=== PATIENT | male | born 1940 | race Caucasian/White ===

== ENCOUNTER 2016-06-28 14:38 | Emergency (ER) | payer MEDICARE, BC ==
[~2016-06-28] VITALS: Ht 177.8 cm; Wt 99.4 kg
[~2016-06-28 14:38] MED LIST: DIAZ2 PO; PROP10TA26 PO; PROS5TAB2 PO; [UNRECOGNIZED DRUG - OTHER]
[2016-06-28 14:45] VITALS: BP 134/93; PULSE 63; RESP 17; TEMP 97.9
[2016-06-28] MEDS ORDERED: FINA5TAB2 PO (15:20)
[2016-06-28] MEDS ORDERED: PROP10TA6 PO (15:20)
[2016-06-28] MEDS ORDERED: ROPI0.25 PO (15:20)
[2016-06-28] MEDS ORDERED: PRED5TAB PO (15:21)
[2016-06-28] MEDS ORDERED: DIAZ5TAB PO (15:21)
[2016-06-28] MEDS ORDERED: BACT800T5 PO (15:23)
[2016-06-28] MEDS ORDERED: SODIUM CHLOR 0.9% 1000 ML INJ 1,000 ML IV SCH (15:24)
[2016-06-28] MEDS ORDERED: MORPHINE SULFATE 4 MG/ML INJ IV PUSH ONE (15:30)
[2016-06-28] MEDS ORDERED: ONDANSETRON HCL 4 MG/2 ML VIAL IVP ONE (15:30)
[2016-06-28] MEDS ORDERED: SODIUM CHLORIDE 0.9% FLUSH 10 ML FLUSH IV FLUSH PRN (15:30)
--- NOTE | 2016-06-28 15:32 | PD ---
HPI Chief Complaint: Abdominal Pain Time Seen by Provider: 15:19 Travel History International Travel<30 days: No Contact w/Intl Traveler<30days: No Traveled to known affect area: No History of Present Illness HPI The patient is a 75-year-old male who presents emergency department for abdominal pain. The patient is a 4-5 day history of constipation, now has increasing abdominal pain and distention. The patient also notes decreased flatus production. The patient feels like his abdomen is distended, he now complains of nausea and vomiting that started last night. The patient does have a history of right inguinal hernia repair in the past by Dr. Mendiola but denies any other abdominal surgeries. The patient denies any fever, chills, or sweats. He denies any known history of previous small bowel obstruction or large bowel obstruction. The patient's primary physician is Dr. Abel Giordano. 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) Cerebrovascular Accident: No Endocrine: No Gastrointestinal Disorders: No Glaucoma: No Genitourinary: Yes (BPH) Headaches: No Hypertension: Yes Kidney Stones: No Musculoskeletal: No Neurologic: Yes (TORTICOLIS, HEAD TREMORS, RLS) Psychiatric: Yes (PANIC ATTACKS) Myocardial Infarction: No Radiation Therapy: No Renal Failure: No Seizures: No Sickle Cell Disease: No Influenza Vaccination: No ?: Not Past Surgical History Abdominal Surgery: Yes (INGUINAL HERNIA) AICD: No Cardiac Surgery: No Ear Surgery: No Endocrine Surgery: No Eye Surgery: Yes (LASIK, l retina and l cataract) Genitourinary Surgery: No Gynecologic Surgery: No Neurologic Surgery: No Oral Surgery: Yes (SEPTUM REPAIR) Pacemaker: No Thoracic Surgery: No Tonsillectomy: Yes Other Surgery: Yes (LASIK) Social History Alcohol Use: Yes (STATES BEER 2-3 X'S PER WEEK) Tobacco Use: No Substance Use: No Allergies-Medications (Allergen,Severity, Reaction): Coded Allergies: No Known Allergies (Verified , 06/28/16) Reported Meds & Prescriptions Reported Meds & Active Scripts Active Reported Bactrim DS (Sulfamethoxazole-Trimethoprim) 800-160 Mg Tab 1 Tab PO 3 TIMES WEEKLY Diazepam 5 Mg Tab 2.5 Mg PO HS PRN Prednisone 5 Mg Tab 5 Mg PO DAILY Finasteride 5 Mg Tab 5 Mg PO DAILY Do not crush. Ropinirole 0.25 Mg Tab 0.25 Mg PO HS Propranolol (Propranolol HCl) 10 Mg Tab 10 Mg PO Q12HR Review of Systems Except as stated in HPI: all other systems reviewed are Neg General / Constitutional: No: Fever Cardiovascular: No: Chest Pain or Discomfort Respiratory: Positive: Shortness of Breath (history of pulmonary fibrosis, chronic on prednisone) Gastrointestinal: Positive: Nausea, Vomiting, Abdominal Pain, Constipation, Changes in Bowel Habits, No: Diarrhea Genitourinary: No: Dysuria Musculoskeletal: No: Weakness Neurologic: No: Weakness Physical Exam Narrative GENERAL: Awake, alert, 75-year-old male who appears his stated age and is in no acute respiratory distress. SKIN: Focused skin assessment warm/dry. HEAD: Atraumatic. Normocephalic. EYES: No injection or drainage. ENT: No nasal bleeding or discharge. Mucous membranes pink and moist. NECK: Trachea midline. No JVD. CARDIOVASCULAR: Regular rate and rhythm. No murmur appreciated. RESPIRATORY: No accessory muscle use. Clear to auscultation. Breath sounds equal bilaterally. GASTROINTESTINAL: Abdomen distended, mild periumbilical tenderness. No rebound tenderness. MUSCULOSKELETAL: No obvious deformities. No clubbing. No cyanosis. No edema. NEUROLOGICAL: Awake and alert. No obvious cranial nerve deficits. Motor grossly within normal limits. Normal speech. PSYCHIATRIC: Appropriate mood and affect; insight and judgment normal. Data Data Last Documented VS Vital Signs Date Time Temp Pulse Resp B/P Pulse Ox O2 Delivery O2 Flow Rate FiO2 06/28/16 15:52 98 Room Air 06/28/16 14:45 97.9 63 17 134/93 Orders Complete Blood Count With Diff (06/28/16 15:24) Comprehensive Metabolic Panel (06/28/16 15:24) Lipase (06/28/16 15:24) Lactic Acid (06/28/16 15:24) Urinalysis - C+S If Indicated (06/28/16 15:24) Ct Abd/Pel W/O Iv Contrast (06/28/16 15:24) Iv Access Insert/Monitor (06/28/16 15:24) Ecg Monitoring (06/28/16 15:24) Oximetry (06/28/16 15:24) Morphine Inj (Morphine Inj) (06/28/16 15:30) Ondansetron Inj (Zofran Inj) (06/28/16 15:30) Sodium Chlor 0.9% 1000 Ml Inj (Ns 1000 M (06/28/16 15:24) Sodium Chloride 0.9% Flush (Ns Flush) (06/28/16 15:30) Electrocardiogram (06/28/16 15:24) Labs Laboratory Tests Test 06/28/16 15:48 White Blood Count 13.1 TH/MM3 Red Blood Count 4.64 MIL/MM3 Hemoglobin 14.2 GM/DL Hematocrit 42.1 % Mean Corpuscular Volume 90.8 FL Mean Corpuscular Hemoglobin 30.6 PG Mean Corpuscular Hemoglobin 33.6 % Concent Red Cell Distribution Width 15.0 % Platelet Count 184 TH/MM3 Mean Platelet Volume 8.4 FL Neutrophils (%) (Auto) 69.4 % Lymphocytes (%) (Auto) 13.4 % Monocytes (%) (Auto) 11.5 % Eosinophils (%) (Auto) 3.4 % Basophils (%) (Auto) 2.3 % Neutrophils # (Auto) 9.1 TH/MM3 Lymphocytes # (Auto) 1.8 TH/MM3 Monocytes # (Auto) 1.5 TH/MM3 Eosinophils # (Auto) 0.4 TH/MM3 Basophils # (Auto) 0.3 TH/MM3 CBC Comment DIFF FINAL Differential Comment Urine Collection Type CLEAN CATCH Urine Color YELLOW Urine Turbidity CLEAR Urine pH 7.5 Urine Specific [place] 1.018 Urine Protein 30 mg/dL Urine Glucose (UA) NEG mg/dL Urine Ketones NEG mg/dL Urine Occult Blood SMALL Urine Nitrite NEG Urine Bilirubin NEG Urine Leukocyte Esterase NEG Urine RBC 15-19 /hpf Urine WBC 0-2 /hpf Urine Squamous Epithelial 0-5 /hpf Cells Urine Amorphous Sediment FEW Microscopic Urinalysis Comment CULT NOT INDICATED Urine Collection Time 15:48 Sodium Level 142 MEQ/L Potassium Level 3.4 MEQ/L Chloride Level 105 MEQ/L Carbon Dioxide Level 26.0 MEQ/L Anion Gap 11 MEQ/L Blood Urea Nitrogen 19 MG/DL Creatinine 1.20 MG/DL Estimat Glomerular Filtration 59 ML/MIN Rate Random Glucose 118 MG/DL Calcium Level 8.2 MG/DL Total Bilirubin 0.9 MG/DL Aspartate Amino Transf 31 U/L (AST/SGOT) Alanine Aminotransferase 28 U/L (ALT/SGPT) Alkaline Phosphatase 57 U/L Total Protein 6.6 GM/DL Albumin 3.2 GM/DL Lipase 181 U/L [facility] Medical Decision Making Medical Screen Exam Complete: Yes Emergency Medical Condition: Yes Medical Record Reviewed: Yes Interpretation(s) EKG reveals sinus bradycardia with a rate of 57. Nonspecific ST changes. CT the abdomen and pelvis reveals left-sided obstructive uropathy with mild left hydronephrosis secondary to a 5 mm calculus in the proximal left ureter. Nonobstructing 3 mm right renal calculus. Easily lung fibrosis with honeycombing and traction bronchiectasis and bronchiolectasis. Laboratory Tests Test 06/28/16 15:48 White Blood Count 13.1 TH/MM3 Red Blood Count 4.64 MIL/MM3 Hemoglobin 14.2 GM/DL Hematocrit 42.1 % Mean Corpuscular Volume 90.8 FL Mean Corpuscular Hemoglobin 30.6 PG Mean Corpuscular Hemoglobin 33.6 % Concent Red Cell Distribution Width 15.0 % Platelet Count 184 TH/MM3 Mean Platelet Volume 8.4 FL Neutrophils (%) (Auto) 69.4 % Lymphocytes (%) (Auto) 13.4 % Monocytes (%) (Auto) 11.5 % Eosinophils (%) (Auto) 3.4 % Basophils (%) (Auto) 2.3 % Neutrophils # (Auto) 9.1 TH/MM3 Lymphocytes # (Auto) 1.8 TH/MM3 Monocytes # (Auto) 1.5 TH/MM3 Eosinophils # (Auto) 0.4 TH/MM3 Basophils # (Auto) 0.3 TH/MM3 CBC Comment DIFF FINAL Differential Comment Urine Collection Type CLEAN CATCH Urine Color YELLOW Urine Turbidity CLEAR Urine pH 7.5 Urine Specific [place] 1.018 Urine Protein 30 mg/dL Urine Glucose (UA) NEG mg/dL Urine Ketones NEG mg/dL Urine Occult Blood SMALL Urine Nitrite NEG Urine Bilirubin NEG Urine Leukocyte Esterase NEG Urine RBC 15-19 /hpf Urine WBC 0-2 /hpf Urine Squamous Epithelial 0-5 /hpf Cells Urine Amorphous Sediment FEW Microscopic Urinalysis Comment CULT NOT INDICATED Urine Collection Time 15:48 Sodium Level 142 MEQ/L Potassium Level 3.4 MEQ/L Chloride Level 105 MEQ/L Carbon Dioxide Level 26.0 MEQ/L Anion Gap 11 MEQ/L Blood Urea Nitrogen 19 MG/DL Creatinine 1.20 MG/DL Estimat Glomerular Filtration 59 ML/MIN Rate Random Glucose 118 MG/DL Calcium Level 8.2 MG/DL Total Bilirubin 0.9 MG/DL Aspartate Amino Transf 31 U/L (AST/SGOT) Alanine Aminotransferase 28 U/L (ALT/SGPT) Alkaline Phosphatase 57 U/L Total Protein 6.6 GM/DL Albumin 3.2 GM/DL Lipase 181 U/L Last Impressions Abdomen/Pelvis CT 06/28/16 1524 Signed Impressions: Service Date/Time: Tuesday, June 28, 2016 15:45 - CONCLUSION: 1. Left- sided obstructive uropathy with mild left hydronephrosis secondary to a 5 mm calculus in the proximal left ureter. Nonobstructing 3 mm right renal calculus. 2. Basilar lung fibrosis with honeycombing and traction bronchiectasis and bronchiolectasis. Delfin Frazier MD Differential Diagnosis Differential diagnosis includes small bowel obstruction, partial small bowel obstruction, large bowel obstruction, pancreatitis, colitis, enteritis, gastroenteritis, dehydration, atypical appendicitis. Narrative Course IV was established, labs are drawn and sent, and the patient was placed on cardiac telemetry monitoring and continuous pulse oximetry monitoring. The patient was administered morphine, Zofran, and IV fluids. CT of the abdomen and pelvis was ordered. UA reveals blood and RBCs. White count is 13.1. LFTs and lipase are unremarkable. CT of the abdomen and pelvis reveals a 5 mm left- sided obstructive uropathy with hydronephrosis. The patient was reevaluated at 4:30 PM, his pain had improved to 3/10. Therefore, the patient was administered Toradol. The patient will be placed on Motrin, Percocet, and Flomax. He is advised to follow-up with his urologist, Dr. Garcia. Diagnosis Primary Impression: Nephrolithiasis Patient Instructions: General Instructions Additional Instructions: Medications as directed. Follow-up with your urologist. Please provide the patient a copy of his CT results and lab results at discharge. Return if symptoms worsen or progress. Med/Other Pt SpecificInfo: Prescription(s) given Scripts Tamsulosin (Flomax)0.4 Mg Cap0.4 Mg PO HS #7 CAP Ref 0 Prov:Rey Serrano MD 06/28/16 Oxycodone-Acetaminophen (Percocet)5-325 mg Tab1 Tab PO Q6H PRN (PAIN) #20 TAB Ref 0 Prov:Rey Serrano MD 06/28/16 Ibuprofen 600 Mg [id number] Mg PO Q6H PRN (Pain/Inflammation) #20 TAB Ref 0 Prov:Rey Serrano MD 06/28/16 Disposition: 01 DISCHARGE HOME Condition: Stable Rey Serrano MD Jun 28, 2016 15:31
[2016-06-28 15:52] VITALS: O2SAT 98
[2016-06-28 15:57] LABS: BLOOD, URINE SMALL (NEG); GLUCOSE,URINE NEG (NEG); KETONE, URINE NEG (NEG); NITRITE,URINE NEG (NEG); PH, URINE 7.5 (5.0-8.5)
[2016-06-28 15:59] LABS: AUTOMATED NEUTROPHIL # 9.1 TH/MM3 (1.8-7.7); BASOPHIL # 0.3 TH/MM3 (0-0.2); BASOPHIL % 2.3 % (0.0-2.0); EOSINOPHIL # 0.4 TH/MM3 (0-0.4); EOSINOPHIL % 3.4 % (0.0-4.0); HEMATOCRIT 42.1 % (39.0-51.0); HEMO FLAGS DIFF FINAL; LYMPH % 13.4 % (9.0-44.0); LYMPHOCYTE # 1.8 TH/MM3 (1.0-4.8); MEAN CELL VOLUME 90.8 FL (80.0-100.0); MEAN CORPUSCULAR HEMOGLOBIN 30.6 PG (27.0-34.0); MEAN CORPUSCULAR HGB CONC 33.6 % (32.0-36.0); MONO % 11.5 % (0.0-8.0); NEUT % 69.4 % (16.0-70.0); PLATELET COUNT 184 TH/MM3 (150-450); RED BLOOD COUNT 4.64 MIL/MM3 (4.50-5.90); WHITE BLOOD COUNT 13.1 TH/MM3 (4.0-11.0)
[2016-06-28 16:05] LABS: METHOD OF COLLECTION CLEAN CATCH; URINE COLOR YELLOW (YELLW/STRAW)
[2016-06-28 16:06] LABS: COMMENT (UR) CULT NOT INDICATED; CULTURE IF INDICATED CULT NOT INDICATED; RBC, URINE 15-19 /hpf (0-3); SQUAMOUS EPITHELIAL CELL URINE 0-5 /hpf (0-5); WBC, URINE 0-2 /hpf (0-5)
[2016-06-28 16:07] LABS: CHLORIDE 105 MEQ/L (98-107); POTASSIUM 3.4 MEQ/L (3.5-5.1); SODIUM (NA) 142 MEQ/L (136-145)
[2016-06-28 16:10] LABS: ANION GAP 11 MEQ/L (5-15)
[2016-06-28 16:11] LABS: BLOOD UREA NITROGEN 19 MG/DL (7-18)
[2016-06-28 16:13] LABS: ALT (GPT) 28 U/L (12-78); AST (GOT) 31 U/L (15-37); GLOMERULAR FILTRATION RATE 59 ML/MIN (>89)
[2016-06-28 16:15] LABS: TOTAL BILIRUBIN ADULT 0.9 MG/DL (0.2-1.0)
[2016-06-28 16:16] LABS: ALKALINE PHOSPHATASE 57 U/L (45-117)
--- NOTE | 2016-06-28 16:22 | RADHPO ---
EXAM DATE/TIME: 06/28/2016 15:45 [facility] COMPARISON: No previous studies available for comparison. INDICATIONS : Left flank pain. ORAL CONTRAST: No oral contrast ingested. RADIATION DOSE: 20.38 CTDIvol (mGy) MEDICAL HISTORY : SURGICAL HISTORY : Inguinal hernia repair. ENCOUNTER: Initial ACUITY: 1 day PAIN SCALE: 4/10 LOCATION: Left Flank TECHNIQUE: Volumetric scanning of the abdomen and pelvis was performed. Using automated exposure control and ad justment of the mA and/or kV according to patient size, radiation dose was kept as low as reasonably achievable to obtain optimal diagnostic quality images. FINDINGS: There are basilar lung fibrotic changes with traction bronchiectasis and early honeycombing. 5 mm calculus in the proximal left ureter with mild left hydronephrosis. Nonobstructing 3 mm calculus upper pole right kidney. Calcified granulomata in the liver and spleen. Adrenals and pancreas unremarkable. No calcified galls tones or biliary ductal dilatation. No free fluid. No bowel obstruction. CONCLUSION: 1. Left-sided obstructive uropathy with mild left hydronephrosis secondary to a 5 mm calculus in the proximal left ureter. Nonobstructing 3 mm right renal calculus. 2. Basilar lung fibrosis with honeycombing and traction bronchiectasis and bronchiolectasis. Delfin Frazier MD on June 28, 2016 at 16:16 Board Certified Radiologist. This report was verified electronically.
[2016-06-28] MEDS ORDERED: IBUP-232 PO (16:45)
[2016-06-28] MEDS ORDERED: PERC5TAB12 PO (16:45)
[2016-06-28] MEDS ORDERED: TAMS5CAP PO (16:45)
--- NOTE | 2016-06-29 16:30 | EKG ---
Date Performed: 06/28/2016 Time Performed: 15:30:32 PTAGE: 75 years EKG: Sinus bradycardia Lateral ST-T changes are nonspecific When compared to previous tracing, t he minor T wave changes Are new. Borderline ECG PREVIOUS TRACING : 12/23/2004 04.15 DOCTOR: Howard Fontenot Interpretating Date/Time 06/29/2016 16:29:34
== END 2016-06-28 17:08 | disposition home or self-care (01) ==
LOC: PHED 14:38
DX: N20.0 Calculus of kidney (principal); N13.30 Unspecified hydronephrosis; K59.00 Constipation, unspecified; R14.0 Abdominal distension (gaseous); R11.2 Nausea with vomiting, unspecified; R94.31 Abnormal electrocardiogram [ECG] [EKG]; I10 Essential (primary) hypertension; Z86.69 Personal history of other diseases of the nervous system and sense organs; Z87.09 Personal history of other diseases of the respiratory system; Z86.59 Personal history of other mental and behavioral disorders; Z85.828 Personal history of other malignant neoplasm of skin; Z86.79 Personal history of other diseases of the circulatory system; Z87.438 Personal history of other diseases of male genital organs
CPT/HCPCS: 74176; 80053; 81001; 83605; 83690; 85025; 93005; 96374; 96375; 99284; J2270; J2405; J7030

== ENCOUNTER 2016-07-26 20:29 | Emergency (ER) | payer MEDICARE, BC ==
[~2016-07-26] VITALS: Ht 177.8 cm; Wt 101.0 kg
[~2016-07-26 20:29] MED LIST changes: +BACT800T5 PO; -DIAZ2 PO; +DIAZ5TAB PO; +FINA5TAB2 PO; +IBUP-232 PO; +PERC5TAB12 PO; +PRED5TAB PO; -PROP10TA26 PO; +PROP10TA6 PO; -PROS5TAB2 PO; +ROPI0.25 PO; +TAMS5CAP PO; -[UNRECOGNIZED DRUG - OTHER]
[2016-07-26 20:41] VITALS: BP 143/97; PULSE 69; RESP 16; TEMP 98.1; O2SAT 90
[2016-07-26 21:06] VITALS: BP 177/103; PULSE 71; RESP 18; TEMP 98.1; O2SAT 92
[2016-07-26] MEDS ORDERED: SODIUM CHLOR 0.9% 1000 ML INJ 1,000 ML IV SCH (21:17)
[2016-07-26] MEDS ORDERED: SODIUM CHLORIDE 0.9% FLUSH 10 ML FLUSH IV FLUSH PRN (21:30)
[2016-07-26] MEDS ORDERED: ONDANSETRON HCL 4 MG/2 ML VIAL IVP ONE (21:30)
[2016-07-26] MEDS ORDERED: MORPHINE SULFATE 4 MG/ML INJ IV PUSH ONE (21:30)
[2016-07-26] MEDS ORDERED: KETOROLAC TROMETHAMINE 30 MG/ML (IVP) VIAL IVP ONE (21:30)
[2016-07-26 21:38] LABS: AUTOMATED NEUTROPHIL # 8.5 TH/MM3 (1.8-7.7); BASOPHIL # 0.1 TH/MM3 (0-0.2); BASOPHIL % 1.1 % (0.0-2.0); BLOOD, URINE NEG (NEG); EOSINOPHIL # 0.6 TH/MM3 (0-0.4); EOSINOPHIL % 5.7 % (0.0-4.0); GLUCOSE,URINE NEG (NEG); HEMATOCRIT 42.3 % (39.0-51.0); HEMO FLAGS DIFF FINAL; KETONE, URINE 15 mg/dL (NEG); LYMPH % 8.7 % (9.0-44.0); LYMPHOCYTE # 0.9 TH/MM3 (1.0-4.8); MEAN CELL VOLUME 92.4 FL (80.0-100.0); MEAN CORPUSCULAR HEMOGLOBIN 30.7 PG (27.0-34.0); MEAN CORPUSCULAR HGB CONC 33.3 % (32.0-36.0); MONO % 7.7 % (0.0-8.0); NEUT % 76.8 % (16.0-70.0); NITRITE,URINE NEG (NEG); PH, URINE 6.5 (5.0-8.5); PLATELET COUNT 204 TH/MM3 (150-450); RED BLOOD COUNT 4.58 MIL/MM3 (4.50-5.90); RED CELL DISTRIBUTION WIDTH 13.4 % (11.6-17.2); WHITE BLOOD COUNT 10.9 TH/MM3 (4.0-11.0)
--- NOTE | 2016-07-26 21:41 | PD ---
HPI Chief Complaint: Flank/Kidney Pain Time Seen by Provider: 21:08 Travel History International Travel<30 days: No Contact w/Intl Traveler<30days: No Traveled to known affect area: No History of Present Illness HPI Is a 75-year-old man who presents to the emergency department complaining of left-sided flank pain. He's had nausea and vomiting with this. He was seen in the emergency department about a month or so ago. He was diagnosed with a 5 mm proximal left ureteral lithiasis. He's been having intermittent symptoms since. States symptoms been worsening recently. He saw his urologist and is scheduled for an intervention in a month and a half. States symptoms are worse today with severe pain and some vomiting and so he came to the emergency department. He is not taking any pain medicines. He was recently diagnosed with the right lower extremity calf vein DVT and just started a blood thinner, sounds like Xarelto. DVT occurred after he injured the foot and ankle. No fevers or chills. No other complaints. History Past Medical History Narrative Medical Pulmonary fibrosis Primary central tremor Hypertension BPH Anxiety and panic Tetanus Vaccination: Unknown Influenza Vaccination: Yes Social History Alcohol Use: Yes (STATES BEER 2-3 X'S PER WEEK) Tobacco Use: No Allergies-Medications (Allergen,Severity, Reaction): Coded Allergies: No Known Allergies (Verified , 07/26/16) Reported Meds & Prescriptions Reported Meds & Active Scripts Active Flomax (Tamsulosin HCl) 0.4 Mg Cap 0.4 Mg PO HS Percocet (Oxycodone-Acetaminophen) 5-325 mg Tab 1 Tab PO Q6H PRN Ibuprofen 600 Mg Tab 600 Mg PO Q6H PRN Reported Diazepam 5 Mg Tab 2.5 Mg PO HS PRN Finasteride 5 Mg Tab 5 Mg PO DAILY Do not crush. Ropinirole 0.25 Mg Tab 0.25 Mg PO HS Propranolol (Propranolol HCl) 10 Mg Tab 10 Mg PO Q12HR Review of Systems Except as stated in HPI: all other systems reviewed are Neg Physical Exam Narrative GENERAL: Well-appearing 75-year-old man, prominent twitches and facial tremor. Nontoxic. SKIN: Focused skin assessment warm/dry. NECK: Trachea midline. No JVD. CARDIOVASCULAR: Regular rate and rhythm. No murmur appreciated. RESPIRATORY: No accessory muscle use. Clear to auscultation. Breath sounds equal bilaterally. GASTROINTESTINAL: Abdomen soft, non-tender, nondistended. Hepatic and splenic margins not palpable. MUSCULOSKELETAL: No obvious deformities. No clubbing. No cyanosis. No edema. NEUROLOGICAL: Awake and alert. No obvious cranial nerve deficits. Motor grossly within normal limits. Normal speech. Data Data Last Documented VS Vital Signs Date Time Temp Pulse Resp B/P Pulse Ox O2 Delivery O2 Flow Rate FiO2 07/26/16 22:31 92 Room Air 07/26/16 22:30 74 18 174/94 07/26/16 21:06 98.1 Orders Complete Blood Count With Diff (07/26/16 21:17) Comprehensive Metabolic Panel (07/26/16 21:17) Lipase (07/26/16 21:17) Urinalysis - C+S If Indicated (07/26/16 21:17) Ct Abd/Pel W/O Iv Contrast (07/26/16 21:17) Iv Access Insert/Monitor (07/26/16 21:17) Ecg Monitoring (07/26/16 21:17) Oximetry (07/26/16 21:17) Morphine Inj (Morphine Inj) (07/26/16 21:30) Ondansetron Inj (Zofran Inj) (07/26/16 21:30) Sodium Chlor 0.9% 1000 Ml Inj (Ns 1000 M (07/26/16 21:17) Sodium Chloride 0.9% Flush (Ns Flush) (07/26/16 21:30) Ketorolac Inj (Toradol Inj) (07/26/16 21:30) Labs Laboratory Tests Test 07/26/16 21:30 White Blood Count 10.9 TH/MM3 Red Blood Count 4.58 MIL/MM3 Hemoglobin 14.1 GM/DL Hematocrit 42.3 % Mean Corpuscular Volume 92.4 FL Mean Corpuscular Hemoglobin 30.7 PG Mean Corpuscular Hemoglobin 33.3 % Concent Red Cell Distribution Width 13.4 % Platelet Count 204 TH/MM3 Mean Platelet Volume 9.3 FL Neutrophils (%) (Auto) 76.8 % Lymphocytes (%) (Auto) 8.7 % Monocytes (%) (Auto) 7.7 % Eosinophils (%) (Auto) 5.7 % Basophils (%) (Auto) 1.1 % Neutrophils # (Auto) 8.5 TH/MM3 Lymphocytes # (Auto) 0.9 TH/MM3 Monocytes # (Auto) 0.8 TH/MM3 Eosinophils # (Auto) 0.6 TH/MM3 Basophils # (Auto) 0.1 TH/MM3 CBC Comment DIFF FINAL Differential Comment Urine Color YELLOW Urine Turbidity SLIGHT Urine pH 6.5 Urine Specific [place] 1.013 Urine Protein NEG mg/dL Urine Glucose (UA) NEG mg/dL Urine Ketones 15 mg/dL Urine Occult Blood NEG Urine Nitrite NEG Urine Bilirubin NEG Urine Leukocyte Esterase NEG Urine RBC 0-3 /hpf Urine WBC 0-2 /hpf Urine Squamous Epithelial 0-5 /hpf Cells Urine Amorphous Sediment MOD Urine Bacteria OCC /hpf Urine Mucus FEW /lpf Microscopic Urinalysis Comment CULT NOT INDICATED Sodium Level 142 MEQ/L Potassium Level 3.7 MEQ/L Chloride Level 105 MEQ/L Carbon Dioxide Level 28.3 MEQ/L Anion Gap 9 MEQ/L Blood Urea Nitrogen 15 MG/DL Creatinine 1.20 MG/DL Estimat Glomerular Filtration 59 ML/MIN Rate Random Glucose 119 MG/DL Calcium Level 8.7 MG/DL Total Bilirubin 0.8 MG/DL Aspartate Amino Transf 28 U/L (AST/SGOT) Alanine Aminotransferase 20 U/L (ALT/SGPT) Alkaline Phosphatase 60 U/L Total Protein 6.8 GM/DL Albumin 3.2 GM/DL Lipase 109 U/L [facility] Medical Decision Making Medical Screen Exam Complete: Yes Emergency Medical Condition: Yes Interpretation(s) LABS: CBC is unremarkable. CMP is unremarkable. Lipase is normal. UA is unremarkable. CT abdomen and pelvis: Check uropathy the left mid to distal ureter secondary to 8 mm calcified calculus resulting in moderate uteropelvic calcium ectasis on the left and perinephric streakiness. Obstructing calculus was moved distally is now located at the level of the superior iliac crest. Differential Diagnosis Renal lithiasis, UTI, other Narrative Course Medical decision making This 75-year-old male with a known left ureteral lithiasis, here with worsening pain. Difficult to assess completely really hasn't taken his pain medicine at home. If he has intractable pain he may be a candidate for urgent intervention. We'll check labs, give medications, and repeat CT see if the stones moving at all and, and the degree of obstruction. FINAL: Patient with kidney stone. He looks well now. Symptoms are gone. It's making its way out. He has urology follow-up and he seen him already for this stone. We'll recommend continued outpatient follow-up. He will return for any worsening symptoms. Diagnosis Primary Impression: Nephrolithiasis Additional Instructions: Continue ibuprofen and Lortab as discussed. Use Zofran if needed for nausea or vomiting. Follow-up with your urologist in the next 2-4 days. Return to the emergency department for any new or worsening symptoms. Med/Other Pt SpecificInfo: Prescription(s) given Scripts Ondansetron Odt (Zofran Odt)4 Mg Tab4 Mg SL Q8HR PRN (Nausea/Vomiting) #15 TAB May substitute non-ODT form. Prov:Yogesh Jara MD 07/26/16 Disposition: 01 DISCHARGE HOME Condition: Stable Yogesh Jara MD July 26, 2016 21:41
[2016-07-26 21:45] LABS: URINE COLOR YELLOW (YELLW/STRAW)
[2016-07-26 21:46] LABS: MUCUS URINE FEW /lpf (OCC); RBC, URINE 0-3 /hpf (0-3); SQUAMOUS EPITHELIAL CELL URINE 0-5 /hpf (0-5); WBC, URINE 0-2 /hpf (0-5)
[2016-07-26 21:47] LABS: BACTERIA, URINE OCC /hpf; CHLORIDE 105 MEQ/L (98-107); COMMENT (UR) CULT NOT INDICATED; CULTURE IF INDICATED CULT NOT INDICATED; POTASSIUM 3.7 MEQ/L (3.5-5.1); SODIUM (NA) 142 MEQ/L (136-145)
[2016-07-26 21:51] LABS: ANION GAP 9 MEQ/L (5-15); BICARBONATE 28.3 MEQ/L (21.0-32.0); BLOOD UREA NITROGEN 15 MG/DL (7-18)
[2016-07-26 21:54] LABS: ALT (GPT) 20 U/L (12-78); AST (GOT) 28 U/L (15-37); GLOMERULAR FILTRATION RATE 59 ML/MIN (>89)
[2016-07-26 21:55] LABS: TOTAL BILIRUBIN ADULT 0.8 MG/DL (0.2-1.0)
[2016-07-26 21:56] LABS: ALKALINE PHOSPHATASE 60 U/L (45-117)
[2016-07-26 22:30] VITALS: BP 174/94; PULSE 74; RESP 18; O2SAT 92
[2016-07-26 22:31] VITALS: O2SAT 92
--- NOTE | 2016-07-26 22:49 | RADHPO ---
EXAM DATE/TIME: 07/26/2016 22:11 [facility] COMPARISON: CT ABDOMEN & PELVIS W/O CONTRAST, June 28, 2016, 15:45. INDICATIONS : Left sided flank pain. ORAL CONTRAST: No oral contrast ingested. RADIATION DOSE: 27.65 CTDIvol (mGy) MEDICAL HISTORY : Hypertension. Carcinoma, squamous cell. Benign prostatic hyperplasia, (BPH) SURGICAL HISTORY : Inguinal hernia repair. ENCOUNTER: Initial ACUITY: 1 day PAIN SCALE: 7/10 LOCATION: Left flank TECHNIQUE: Volumetric scanning of the abdomen and pelvis was performed. Using automated exposure control and ad justment of the mA and/or kV according to patient size, radiation dose was kept as low as reasonably achievable to obtain optimal diagnostic quality images. FINDINGS: Fibrotic scarring, pleural thickening and bronchiectasis is again noted within the lung bases. There is persistent obstructive uropathy of the left mid to distal ureter secondary to an 8 mm calcified u reteral calculus resulting in moderate ureteropelvocaliectasis and perinephric streakiness on the lef t. The ureteral calculus has moved distally compared to 06/28/2016 and now is at the level of the lef t iliac crest. 4 mm calcified nonobstructing right renal calculus is noted. The prostate gland is e nlarged and contains central calcifications. A small hiatal hernia is noted. Calcified granulomas a re noted within the spleen and liver. Degenerative changes are noted throughout the lumbar and lower thoracic spine. There is a small umbilical hernia containing only fat. CONCLUSION: 1. Obstructive uropathy of the left mid to distal ureter secondary to an 8 mm calcified ureteral mary culus resulting in moderate ureteropelvocaliectasis on the left and perinephric streakiness. The obs tructing calculus has moved distally compared to 06/28/2016 and now is located at the level of the sup erior iliac crest. 2. Enlarged prostate with central calcifications. 3. Small umbilical hernia containing only fat. 4. Calcified nonobstructing right renal calculus measuring 4 mm. 5. Small hiatal hernia. 6. Stable bibasilar interstitial fibrosis, bronchiectasis and pleural thickening. Sb Muller MD on July 26, 2016 at 22:29 Board Certified Radiologist. This report was verified electronically.
[2016-07-26] MEDS ORDERED: ZOFR4TAB3 SL (23:02)
[2016-07-26 23:39] VITALS: BP 166/92; PULSE 74; RESP 18; O2SAT 92
== END 2016-07-26 23:41 | disposition home or self-care (01) ==
LOC: PHED 20:29
DX: N20.0 Calculus of kidney (principal); G25.2 Other specified forms of tremor; J84.10 Pulmonary fibrosis, unspecified; I10 Essential (primary) hypertension
CPT/HCPCS: 74176; 80053; 81001; 83690; 85025; 96361; 96374; 96375; 99284; J1885; J2270; J2405; J7030

== ENCOUNTER → 2016-07-29 | Outpatient (CLI) | payer MEDICARE, BC ==
[~2016-07-29] MED LIST changes: -BACT800T5 PO; -PRED5TAB PO; +ZOFR4TAB3 SL
[2016-07-29 12:28] LABS: BLOOD GAS BASE EXCESS -0.5 mmol/L (-2-2); BLOOD GAS CARBOXYHEMOGLOBIN 2.3 % (0-4); BLOOD GAS HCO3 23 mmol/L (22-26); BLOOD GAS O2 HGB SATURATION 88 % (90-100); BLOOD GAS OXYGEN CONTENT 16.7 Vol % (12.0-20.0); BLOOD GAS PCO2 37 mmHg (38-42); BLOOD GAS PO2 62 mmHg (61-120); BLOOD GAS TOTAL HGB 13.5 G/DL (12.0-16.0); TEMP CORR TO 98.6
[2016-07-29 12:29] LABS: CRITICAL VALUE YES; FIO2 21 %
[2016-07-29 12:30] LABS: DRAW SITE RT RADIAL; NUMBER OF ARTERIAL PUNCTURES 1; STAT NO; ULNAR PULSE PRESENT
--- NOTE | 2016-07-31 09:27 | RSPPFT ---
DATE OF PROCEDURE: 07/29/16 COMMENTS: Spirometry with FVC of 1.6 predicted 4.3, FEV1 of 1.4 predicted 2.8, FEV1/FVC ratio 87% predicted 66%. Lung volumes show a decrease in the TLC at 3.0 predicted 6.8. DLCO is 31% of predicted. IMPRESSION: On the basis of the above, patient has a restrictive lung defect and de-saturation with exertion.
== END ==
LOC: HRSP 10:34
PROVIDERS: ATTEND Internal Medicine Pulmonary Disease
DX: R06.02 Shortness of breath (principal)
CPT/HCPCS: 36600; 82805; 94060; 94620; 94726; 94729